=== PATIENT | female | born 1980 | race Caucasian/White ===

== ENCOUNTER 2016-03-24 06:37 | Emergency (ER) | payer BC ==
[2016-03-24 07:36] LABS: BASO % 0.4 % (0.0-1.0); EOS # 0.2 K/mm3 (0.0-0.50); EOS % 3.7 % (0.0-3.0); LARGE UNSTAINED CELL # 0.1 K/mm3 (0.0-0.4); LYMPH # 1.2 K/mm3 (1.5-4.5); LYMPH % 26.8 % (24.0-44.0); MEAN CORPUSCULAR HEMOGLOBIN 28.8 pg (27.0-33.0); MEAN CORPUSCULAR HGB CONC 32.6 g/dl (32.0-36.5); MEAN CORPUSCULAR VOLUME 88.2 fl (80.0-96.0); MONO # 0.4 K/mm3 (0.0-0.8); MONO % 9.7 % (0.0-5.0); NEUTROPHILS # 2.4 K/mm3 (1.8-7.7); NEUTROPHILS % 57.4 % (36.0-66.0); PLATELET COUNT, AUTOMATED 179 k/mm3 (150-450); RED CELL DISTRIBUTION WIDTH 12.6 % (11.5-14.5); WHITE BLOOD COUNT 4.2 K/mm3 (4.0-10.0)
[2016-03-24 07:44] LABS: CALCIUM OXALATE CRYSTALS SMALL
[2016-03-24 07:53] LABS: CONTROL LINE HCG INT CTR LINE PRESENT
[2016-03-24] MEDS ORDERED: KETOROLAC 30 MG/ML VIAL (J1885) As Ordered ONE (08:14)
--- NOTE | 2016-03-24 10:37 | REP ---
PELVIC SONOGRAPHY: HISTORY: Adnexal pain. Question torsion. Right oophorectomy. FINDINGS: Transabdominal and transvaginal scanning are included. Uterus is mildly enlarged with dimensions of 10.2 x 5.0 x 6.4 cm. Endometrial echo is 0.1 cm in thickness. No focal uterine mass is seen. The lower uterine segment shows heterogeneous echogenicity and small cystic changes. The patient is status post multiple prior C-sections. No free fluid is seen. Right ovary is surgically absent. The left ovary measures 3.8 x 2.4 x 3.3 cm. There is a dominant follicle in the right ovary measuring 2.1 cm in greatest diameter. Doppler resistive index is normal in the left ovary measuring 0.55. IMPRESSION: Myometrium is heterogeneous with small cystic areas in the myometrium of the lower uterine segment; post . No other abnormality. Normal left ovary. Signed by Kush Hughes MD 03/24/2016 11:03 A
--- NOTE | 2016-03-24 11:04 | EDDOCDS ---
Physician Documentation [facility] Name: Chata Chacko Age: 35 yrs Sex: Female : 1980 Arrival Date: 03/24/2016 Time: 06:37 Bed 12 Private MD: Disposition: 03/24/16 10:26 Discharged to Home/Self Care. Impression: Pelvic and perineal pain - bacterial vaginosis. - Condition is Stable. - Discharge Instructions: Bacterial Vaginosis, Pelvic Pain, Female, Pelvic Pain, Female, Txwl-[id number], Bacterial Vaginosis, Jwxy-fr-Ervd. - Prescriptions for Flagyl 500 mg Oral Tablet - take 1 tablet by ORAL route every 12 hours for 7 days; 14 tablet. - Medication Reconciliation, Local Pharmacy Hours, Work Release Form - 1 day form. - Follow up: Private Physician; When: Call to arrange an appointment. - Problem is new. - Symptoms have improved. Historical: - Allergies: PENICILLINS; Codeine Sulfate (tachycardia); - Home Meds: 1. mucinex flu - PMHx: kidney disease; - PSHx: Tubal ligation; multiple surgeries on kidney right side; Lithotripsy; - Social history: Smoking status: Patient uses tobacco products, light tobacco smoker. No barriers to communication noted, The patient speaks fluent Bulgarian, Speaks appropriately for age. - Family history: Not pertinent. - : The pt / caregiver states he / she is not on anticoagulants. Home medication list is obtained from the patient. - Exposure Risk Screening:: None identified. 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 4 in. (162.56 cm); 10:33 BP 105 / 56; Pulse 71; Resp 17; Temp 96.1(T); Pulse Ox 99% on R/A; lr2 11:03 Pain 0/10; jo3 06:51 Body Mass Index 26.43 (69.85 kg, 162.56 cm) cz MDM: 07:03 NS 0.9% 1000 ml IV at 250 mL/hr continuous ordered. sd1 07:03 Set up pelvic ordered. sd1 07:04 UA Ordered. EDMS 07:04 Urine Culture Ordered. EDMS 07:04 HCG,Serum Qualitative Ordered. EDMS 07:04 CBC with Diff Ordered. EDMS 07:04 GC & Chlamydia Amplification Ordered. EDMS 07:04 Wet Prep Ordered. EDMS 07:09 Financial registration complete. pm4 07:20 [facility] [place] Agreement was scanned into [employer] and attached to record. pm4 07:39 CBC with Diff Reviewed. sd1 07:50 UA Reviewed. sd1 08:05 HCG,Serum Qualitative Reviewed. sd1 08:06 ketorolac 30 mg IVP once ordered. sd1 08:41 -US Pelvic Non-Ob Complete Ordered. EDMS 08:42 DUPLEX SCAN LIMITED (DOPPLER)+US Ordered. EDMS 08:43 Wet Prep Reviewed. sd1 10:12 Transvaginal NON- US Ordered. EDMS Administered Medications: 07:30 Drug: NS 0.9% 1000 ml [sodium chloride 0.9 % intravenous solution] Route: IV; Rate: 250 ml6 mL/hr; Site: left antecubital; 11:03 Follow up: IV Status: Completed infusion jo3 08:18 Drug: ketorolac 30 mg [ketorolac 30 mg/mL (1 mL) injection solution (1 mL)] Route: IVP; ml6 Site: left antecubital; 11:03 Follow up: Pain 0/10 Adult jo3 Signatures: Dispatcher MedHost EDMS Sruthi Ozuna MD MD sd1 Gallo Jones RN RN Carol Rosenthal RN RN jo3 Refugio Romano, Reg Reg pm4 Denny Gallardo RN ml6 The chart was reviewed and I authenticate all verbal orders and agree with the evaluation and treatment provided.Attachments: 07:20 [facility] Payment Agreement pm4 MTDD
--- NOTE | 2016-03-24 11:04 | EDDOCDS ---
Nurse's Notes [facility] Name: Chata Chacko Age: 35 yrs Sex: Female : 1980 Arrival Date: 03/24/2016 Time: 06:37 Bed 12 Private MD: Diagnosis: Pelvic and perineal pain-bacterial vaginosis Presentation: 03/24 06:45 Presenting complaint: Patient states: she is having abdominal pain for 2 days starting cz spotting today recent period pt relates she has had a tubal ligation.pt denies UTI symptoms.pt states has a history of kidney disease. also having flu symptoms. Risk factors: the patient reports a small or scant amount of vaginal bleeding. Adult Sepsis Screening: The patient does not have new or worsening altered mentation. Patient's respiratory rate is less than 22. Systolic blood pressure is greater than 100. Patient has a qSOFA score of 0- Negative Sepsis Screen. Suicide/Homicide risk assessment- the patient denies having any suicidal and/or homicidal ideations and does not present with any other emotional, behavioral or mental health complaints. Status: Patient is not a account services specialist or dependent. Transition of care: patient was not received from another setting of care. 06:45 Acuity: GREG Level 3 cz 06:45 Method Of Arrival: Walkin/Carried/Asstd cz Triage Assessment: 06:51 General: Appears in no apparent distress. Pain: Location: abdomen Pain currently is 9 cz out of 10 on a pain scale. Pt Declines HIV testing. 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 mucinex flu - PMHx: kidney disease; - PSHx: Tubal ligation; multiple surgeries on kidney right side; Lithotripsy; - Social history: Smoking status: Patient uses tobacco products, light tobacco smoker. No barriers to communication noted, The patient speaks fluent Frisian, Speaks appropriately for age. - Family history: Not pertinent. - : The pt / caregiver states he / she is not on anticoagulants. Home medication list is obtained from the patient. - Exposure Risk Screening:: None identified. Screenin:31 Screening information is obtained from the patient. Fall risk: No risks identified. ml6 Assistance ADL's: requires no assistance with activities of daily living. Abuse/DV Screen: The patient / caregiver reports he/she is: not in a situation that causes fear, pain or injury. Nutritional screening: No deficits noted. Advance Directives: Currently, there is no health care proxy. home support is adequate. Assessment: 07:30 General: Appears in no apparent distress. Pain: Location: suprapubic area, right iliac ml6 crest and left iliac crest Pain currently is 5 out of 10 on a pain scale. Pain does not radiate. Quality of pain is described as sharp, Pain began 2-3 days ago. Neurological: No deficits noted. Cardiovascular: No deficits noted. Capillary refill < 3 seconds is brisk in bilateral fingers toes Heart tones S1 S2 present. Respiratory: No deficits noted. Airway is patent Respiratory effort is even, unlabored, Respiratory pattern is regular, symmetrical. GI: Abdomen is flat, non- distended Bowel sounds present X 4 quads. Abd is soft and non tender X 4 quads. Denies nausea, vomiting. 08:30 Reassessment: Patient appears in no apparent distress at this time. Patient denies pain ml6 at this time. Patient states feeling better. Patient states symptoms have improved. GI: Abdomen is flat, non- distended Bowel sounds present X 4 quads. Abd is soft and non tender X 4 quads. Denies nausea, vomiting, pain. 09:15 General: Appears in no apparent distress, comfortable, Behavior is appropriate for age, jo3 cooperative. General: Resting on stretcher with significant other at bedside. Awaiting results for disposition. Aware of plan of care. Pt reports that pain in improved but continues to feel weakness. Neurological: No deficits noted. Level of Consciousness is awake, alert, Oriented to person, place, time. Respiratory: Airway is patent Respiratory effort is even, unlabored. Derm: Skin is pink, warm & dry. 11:00 Reassessment: Patient appears in no apparent distress at this time. Patient denies pain jo3 at this time. Patient states feeling better. Patient states symptoms have improved. . Vital Signs: 06:51 BP 122 / 77; Pulse 74; Resp 16; Temp 96.3(T); Pulse Ox 100% on R/A; Weight 69.85 kg; cz Height 5 ft. 4 in. (162.56 cm); 10:33 BP 105 / 56; Pulse 71; Resp 17; Temp 96.1(T); Pulse Ox 99% on R/A; lr2 11:03 Pain 0/10; jo3 06:51 Body Mass Index 26.43 (69.85 kg, 162.56 cm) cz Vitals: 06:51 Log In Time: March 24, 2016 at 06:36. cz ED Course: 06:39 Patient visited by Leeann Peña. gjb 06:39 Patient moved to Waiting gjb 06:49 Triage Initiated cz 06:55 Patient moved to 12 cz 06:56 Sruthi Ozuna MD is Attending Physician. sd1 06:57 Patient visited by Sruthi Ozuna MD. sd1 07:18 Patient name changed from Chata\S\\S\Derryberry-Ant\S\ to Chata\S\ \S\Derryberry-Ant. EDMS 07:20 [facility] Payment Agreement was scanned into [employer] and attached to record. pm4 07:30 Urine Culture Sent. ml6 07:30 UA Sent. ml6 07:32 Patient visited by Denny Gallardo RN. ml6 07:32 Inserted peripheral IV: 18gauge IV in left antecubital area and blood collected. ml6 Patient tolerated the procedure well. No procedures done that require assistance. Labs drawn. (by ED staff). Sent per order to lab. 08:18 Patient visited by Denny Gallardo RN. ml6 08:30 Patient visited by Adryan Motta PCA. jlf 08:31 Wet Prep Sent. jlf 08:31 GC & Chlamydia Amplification Sent. jlf 09:08 Patient visited by Denny Gallardo RN. ml6 09:50 Patient moved to Ultrasound am17 09:51 Patient visited by Carol Alcazar RN. jo3 10:11 Patient moved to 12 am17 10:34 Patient visited by Maria Isabel Alvarado. lr2 10:38 -US Pelvic Non-Ob Complete Returned. EDMS 11:00 The patient / caregiver is instructed regarding the plan of care and ED course. jo3 11:00 Discontinued IV lock intact, bleeding controlled, pressure dressing applied, No jo3 redness/swelling at site. Administered Medications: 07:30 Drug: NS 0.9% 1000 ml [sodium chloride 0.9 % intravenous solution] Route: IV; Rate: 250 ml6 mL/hr; Site: left antecubital; 11:03 Follow up: IV Status: Completed infusion jo3 08:18 Drug: ketorolac 30 mg [ketorolac 30 mg/mL (1 mL) injection solution (1 mL)] Route: IVP; ml6 Site: left antecubital; 11:03 Follow up: Pain 0/10 Adult jo3 Order Results: Lab Order: UA; SPEC'M 03/24/16 07:17 Test: APPEARANCE, URINE; Value: CLOUDY; Range: CLEAR; Abnormal: Above high normal; Status: F Test: COLOR, URINE; Value: YELLOW; Range: YELLOW; Status: F Test: PH,URINE; Value: 5.0; Range: 5.0-9.0; Units: UNITS; Status: F Test: SPECIFIC GRAVITY URINE AUTO; Value: 1.018; Range: 1.002-1.035; Status: F Test: PROTEIN, URINE AUTO; Value: NEGATIVE; Range: NEGATIVE; Units: mg/dL; Status: F Test: GLUCOSE, URINE (UA) AUTO; Value: NEGATIVE; Range: NEGATIVE; Units: mg/dL; Status: F Test: KETONE, URINE AUTO; Value: NEGATIVE; Range: NEGATIVE; Units: mg/dL; Status: F Test: UROBILINOGEN, URINE AUTO; Value: 0.2; Range: 0.0-2.0; Units: mg/dL; Status: F Test: BILIRUBIN, URINE AUTO; Value: NEGATIVE; Range: NEGATIVE; Status: F Test: NITRITE, URINE AUTO; Value: NEGATIVE; Range: NEGATIVE; Status: F Test: LEUKOCYTE ESTERASE, URINE AUTO; Value: TRACE; Range: NEGATIVE; Abnormal: Above high normal; Status: F Test: BLOOD, URINE BLOOD; Value: NEGATIVE; Range: NEGATIVE; Status: F Test: WBC, URINE AUTO; Value: 11; Range: 0-3; Abnormal: Above high normal; Units: /HPF; Status: F Test: RBC, URINE AUTO; Value: 14; Range: 0-3; Abnormal: Above high normal; Units: /HPF; Status: F Test: BACTERIA, URINE AUTO; Value: NEGATIVE; Range: NEGATIVE; Status: F Test: SQUAMOUS EPITHELIAL CELL UR AU; Value: 10; Range: 0-6; Units: /HPF; Status: F Test: MUCUS, URINE; Value: SMALL; Range: NEGATIVE; Status: F Test: HYALINE CAST, URINE AUTO; Value: 0; Range: 0-1; Units: /LPF; Status: F Test: CALCIUM OXALATE CRYSTALS; Value: SMALL; Range: NONE; Status: F Lab Order: HCG,Serum Qualitative; SPEC'M 03/24/16 07:17 Test: HCG, SERUM QUALITATIVE; Value: NEGATIVE; Range: NEGATIVE; Status: F Lab Order: CBC with Diff; SPEC'M 03/24/16 07:17 Test: WHITE BLOOD COUNT; Value: 4.2; Range: 4.0-10.0; Units: K/mm3; Status: F Test: RED BLOOD COUNT; Value: 4.42; Range: 4.00-5.40; Units: M/mm3; Status: F Test: HEMOGLOBIN; Value: 12.7; Range: 12.0-16.0; Units: g/dl; Status: F Test: HEMATOCRIT; Value: 39.0; Range: 36.0-47.0; Units: %; Status: F Test: MEAN CORPUSCULAR VOLUME; Value: 88.2; Range: 80.0-96.0; Units: fl; Status: F Test: MEAN CORPUSCULAR HEMOGLOBIN; Value: 28.8; Range: 27.0-33.0; Units: pg; Status: F Test: MEAN CORPUSCULAR HGB CONC; Value: 32.6; Range: 32.0-36.5; Units: g/dl; Status: F Test: RED CELL DISTRIBUTION WIDTH; Value: 12.6; Range: 11.5-14.5; Units: %; Status: F Test: PLATELET COUNT, AUTOMATED; Value: 179; Range: 150-450; Units: k/mm3; Status: F Test: NEUTROPHILS %; Value: 57.4; Range: 36.0-66.0; Units: %; Status: F Test: LYMPH %; Value: 26.8; Range: 24.0-44.0; Units: %; Status: F Test: MONO %; Value: 9.7; Range: 0.0-5.0; Abnormal: Above high normal; Units: %; Status: F Test: EOS %; Value: 3.7; Range: 0.0-3.0; Abnormal: Above high normal; Units: %; Status: F Test: BASO %; Value: 0.4; Range: 0.0-1.0; Units: %; Status: F Test: LARGE UNSTAINED CELL %; Value: 2.0; Range: 0.0-4.0; Units: %; Status: F Test: NEUTROPHILS #; Value: 2.4; Range: 1.8-7.7; Units: K/mm3; Status: F Test: LYMPH #; Value: 1.2; Range: 1.5-4.5; Abnormal: Below low normal; Units: K/mm3; Status: F Test: MONO #; Value: 0.4; Range: 0.0-0.8; Units: K/mm3; Status: F Test: EOS #; Value: 0.2; Range: 0.0-0.50; Units: K/mm3; Status: F Test: BASO #; Value: 0.0; Range: 0.0-0.2; Units: K/mm3; Status: F Test: LARGE UNSTAINED CELL #; Value: 0.1; Range: 0.0-0.4; Units: K/mm3; Status: F Lab Order: GC & Chlamydia Amplification; SPEC'M 03/24/16 07:17 Test: CHLAMYDIA DNA AMPLIFICATION; Value: NEGATIVE; Range: NEGATIVE; Status: F Test: GC DNA AMPLIFICATION; Value: NEGATIVE; Range: NEGATIVE; Status: F Lab Order: Wet Prep; SPEC'M 03/24/16 07:17 Test: WET PREP; Value: WET PREP RESULT; Status: F Test: WET PREP; Value: MODERATE EPITHELIAL CELLS PRESENT; Status: F Test: WET PREP; Value: FEW WBC; Status: F Test: WET PREP; Value: MANY SHORT RODS PRESENT; Status: F Test: WET PREP; Value: FEW CLUE CELLS PRESENT; Status: F Test: WET PREP; Value: Comments:; Status: F Test Note: ; Specimen did not meet the 1 hour time limit from collection to examination. Trichomonas vaginalis loses motility quickly therefore, samples need to be examined within 1 hour of collection to optimally identify this organism. Radiology Order: -US Pelvic Non-Ob Complete Test: -US Pelvic Non-Ob Complete REASON FOR EXAMINATION: Adnexal Pain r/o Torsion; PELVIC SONOGRAPHY:; ; HISTORY: Adnexal pain. Question torsion. Right oophorectomy.; ; FINDINGS: Transabdominal and transvaginal scanning are included. Uterus is; mildly enlarged with dimensions of 10.2 x 5.0 x 6.4 cm. Endometrial echo is 0.1; cm in thickness. No focal uterine mass is seen. The lower uterine segment shows; heterogeneous echogenicity and small cystic changes. The patient is status post; multiple prior C-sections. No free fluid is seen.; ; Right ovary is surgically absent. The left ovary measures 3.8 x 2.4 x 3.3 cm.; There is a dominant follicle in the right ovary measuring 2.1 cm in greatest; diameter. Doppler resistive index is normal in the left ovary measuring 0.55.; ; IMPRESSION:; Myometrium is heterogeneous with small cystic areas in the myometrium of the; lower uterine segment; post . No other abnormality. Normal left; ovary.; ; ; ; ; Unreviewed; Outcome: 10:26 Discharge ordered by Provider. sd1 11:00 Discharge Assessment: Patient awake, alert and oriented x 3. No cognitive and/or jo3 functional deficits noted. Patient verbalized understanding of disposition instructions. patient administered narcotics - no. The following High Risk Discharge criteria are identified: None. Discharged to home ambulatory, with significant other. Condition: stable Condition: improved. No special radiology studies were completed. Property sent home with patient. 11:03 Patient left the ED. jo3 Signatures: Dispatcher MedHost EDMS Sruthi Ozuna MD MD sd1 Gallo Jones RN RN cz Helmerci, Jennifer, RN RN jo3 Denny Gallardo, BILL RN ml6 Adryan Motta, [employer] Neris Fox amLeeann Zurita gjb Refugio Romano, Reg Reg pm4 Maria Isabel Alvarado lr2 MTDD
--- NOTE | 2016-03-26 12:04 | EDDOCDS ---
Physician Documentation [facility] Name: Chata Chacko Age: 35 yrs Sex: Female : 1980 Arrival Date: 03/24/2016 Time: 06:37 Bed 12 Private MD: Disposition: 03/24/16 10:26 Discharged to Home/Self Care. Impression: Pelvic and perineal pain - bacterial vaginosis. - Condition is Stable. - Discharge Instructions: Bacterial Vaginosis, Pelvic Pain, Female, Pelvic Pain, Female, Jfpr-[id number], Bacterial Vaginosis, Mbba-yq-Xaxk. - Prescriptions for Flagyl 500 mg Oral Tablet - take 1 tablet by ORAL route every 12 hours for 7 days; 14 tablet. - Medication Reconciliation, Local Pharmacy Hours, Work Release Form - 1 day form. - Follow up: Private Physician; When: Call to arrange an appointment. - Problem is new. - Symptoms have improved. Historical: - Allergies: PENICILLINS; Codeine Sulfate (tachycardia); - Home Meds: 1. mucinex flu - PMHx: kidney disease; - PSHx: Tubal ligation; multiple surgeries on kidney right side; Lithotripsy; - Social history: Smoking status: Patient uses tobacco products, light tobacco smoker. No barriers to communication noted, The patient speaks fluent Macedonian, Speaks appropriately for age. - Family history: Not pertinent. - : The pt / caregiver states he / she is not on anticoagulants. Home medication list is obtained from the patient. - Exposure Risk Screening:: None identified. 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 4 in. (162.56 cm); 10:33 BP 105 / 56; Pulse 71; Resp 17; Temp 96.1(T); Pulse Ox 99% on R/A; lr2 11:03 Pain 0/10; jo3 06:51 Body Mass Index 26.43 (69.85 kg, 162.56 cm) cz MDM: 07:03 NS 0.9% 1000 ml IV at 250 mL/hr continuous ordered. sd1 07:03 Set up pelvic ordered. sd1 07:04 UA Ordered. EDMS 07:04 Urine Culture Ordered. EDMS 07:04 HCG,Serum Qualitative Ordered. EDMS 07:04 CBC with Diff Ordered. EDMS 07:04 GC & Chlamydia Amplification Ordered. EDMS 07:04 Wet Prep Ordered. EDMS 07:09 Financial registration complete. pm4 07:20 [facility] Payment Agreement was scanned into [employer] and attached to record. pm4 07:39 CBC with Diff Reviewed. sd1 07:50 UA Reviewed. sd1 08:05 HCG,Serum Qualitative Reviewed. sd1 08:06 ketorolac 30 mg IVP once ordered. sd1 08:41 -US Pelvic Non-Ob Complete Ordered. EDMS 08:42 DUPLEX SCAN LIMITED (DOPPLER)+US Ordered. EDMS 08:43 Wet Prep Reviewed. sd1 10:12 Transvaginal NON- US Ordered. EDMS 12:51 T-Sheet-- Draft Copy was scanned into [employer] and attached to record. klr Administered Medications: 07:30 Drug: NS 0.9% 1000 ml [sodium chloride 0.9 % intravenous solution] Route: IV; Rate: 250 ml6 mL/hr; Site: left antecubital; 11:03 Follow up: IV Status: Completed infusion jo3 08:18 Drug: ketorolac 30 mg [ketorolac 30 mg/mL (1 mL) injection solution (1 mL)] Route: IVP; ml6 Site: left antecubital; 11:03 Follow up: Pain 0/10 Adult jo3 Signatures: Dispatcher MedHost EDNC Sruthi Ozuna MD MD sd1 Gallo Jones RN RN cz Carol Alcazar RN RN jo3 Ivonne Garcia klr Refugio Romano, Reg Reg pm4 Denny Gallardo RN ml6 The chart was reviewed and I authenticate all verbal orders and agree with the evaluation and treatment provided.Attachments: 07:20 [facility] Payment Agreement pm4 12:51 T-Sheet-- Draft Copy klr Chart Complete MTDD
--- NOTE | 2016-03-26 12:04 | EDDOCDS ---
Physician Documentation [facility] Name: Chata Chacko Age: 35 yrs Sex: Female : 1980 Arrival Date: 03/24/2016 Time: 06:37 Bed 12 Private MD: Disposition: 03/24/16 10:26 Discharged to Home/Self Care. Impression: Pelvic and perineal pain - bacterial vaginosis. - Condition is Stable. - Discharge Instructions: Bacterial Vaginosis, Pelvic Pain, Female, Pelvic Pain, Female, Oerc-yq-Exov, Bacterial Vaginosis, Rpzg-ye-Qqfu. - Prescriptions for Flagyl 500 mg Oral Tablet - take 1 tablet by ORAL route every 12 hours for 7 days; 14 tablet. - Medication Reconciliation, Local Pharmacy Hours, Work Release Form - 1 day form. - Follow up: Private Physician; When: Call to arrange an appointment. - Problem is new. - Symptoms have improved. Historical: - Allergies: PENICILLINS; Codeine Sulfate (tachycardia); - Home Meds: 1. mucinex flu - PMHx: kidney disease; - PSHx: Tubal ligation; multiple surgeries on kidney right side; Lithotripsy; - Social history: Smoking status: Patient uses tobacco products, light tobacco smoker. No barriers to communication noted, The patient speaks fluent British, Speaks appropriately for age. - Family history: Not pertinent. - : The pt / caregiver states he / she is not on anticoagulants. Home medication list is obtained from the patient. - Exposure Risk Screening:: None identified. 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 4 in. (162.56 cm); 10:33 BP 105 / 56; Pulse 71; Resp 17; Temp 96.1(T); Pulse Ox 99% on R/A; lr2 11:03 Pain 0/10; jo3 06:51 Body Mass Index 26.43 (69.85 kg, 162.56 cm) cz MDM: 07:03 NS 0.9% 1000 ml IV at 250 mL/hr continuous ordered. sd1 07:03 Set up pelvic ordered. sd1 07:04 UA Ordered. EDMS 07:04 Urine Culture Ordered. EDMS 07:04 HCG,Serum Qualitative Ordered. EDMS 07:04 CBC with Diff Ordered. EDMS 07:04 GC & Chlamydia Amplification Ordered. EDMS 07:04 Wet Prep Ordered. EDMS 07:09 Financial registration complete. pm4 07:20 [facility] Payment Agreement was scanned into [employer] and attached to record. pm4 07:39 CBC with Diff Reviewed. sd1 07:50 UA Reviewed. sd1 08:05 HCG,Serum Qualitative Reviewed. sd1 08:06 ketorolac 30 mg IVP once ordered. sd1 08:41 -US Pelvic Non-Ob Complete Ordered. EDMS 08:42 DUPLEX SCAN LIMITED (DOPPLER)+US Ordered. EDMS 08:43 Wet Prep Reviewed. sd1 10:12 Transvaginal NON- US Ordered. EDMS 12:51 T-Sheet-- Draft Copy was scanned into [employer] and attached to record. klr Administered Medications: 07:30 Drug: NS 0.9% 1000 ml [sodium chloride 0.9 % intravenous solution] Route: IV; Rate: 250 ml6 mL/hr; Site: left antecubital; 11:03 Follow up: IV Status: Completed infusion jo3 08:18 Drug: ketorolac 30 mg [ketorolac 30 mg/mL (1 mL) injection solution (1 mL)] Route: IVP; ml6 Site: left antecubital; 11:03 Follow up: Pain 0/10 Adult jo3 Signatures: Dispatcher MedHost EDCT Sruthi Ozuna MD MD sd1 Gallo Jones RN RN cz Carol Alcazar RN RN jo3 Ivonne Garcia klr Refugio Romano, Reg Reg pm4 Denny Gallardo RN ml6 The chart was reviewed and I authenticate all verbal orders and agree with the evaluation and treatment provided.Attachments: 07:20 [facility] Payment Agreement pm4 12:51 T-Sheet-- Draft Copy klr Chart Complete MTDD
--- NOTE | 2016-03-26 17:42 | EDDOCDS ---
Physician Documentation [facility] Name: Chata Chacko Age: 35 yrs Sex: Female : 1980 Arrival Date: 03/24/2016 Time: 06:37 Bed 12 Private MD: Disposition: 03/24/16 10:26 Discharged to Home/Self Care. Impression: Pelvic and perineal pain - bacterial vaginosis. - Condition is Stable. - Discharge Instructions: Bacterial Vaginosis, Pelvic Pain, Female, Pelvic Pain, Female, Shpl-[id number], Bacterial Vaginosis, Xhhj-lb-[id number]. - Prescriptions for Flagyl 500 mg Oral Tablet - take 1 tablet by ORAL route every 12 hours for 7 days; 14 tablet. - Medication Reconciliation, Local Pharmacy Hours, Work Release Form - 1 day form. - Follow up: Private Physician; When: Call to arrange an appointment. - Problem is new. - Symptoms have improved. Historical: - Allergies: PENICILLINS; Codeine Sulfate (tachycardia); - Home Meds: 1. mucinex flu - PMHx: kidney disease; - PSHx: Tubal ligation; multiple surgeries on kidney right side; Lithotripsy; - Social history: Smoking status: Patient uses tobacco products, light tobacco smoker. No barriers to communication noted, The patient speaks fluent Swazi, Speaks appropriately for age. - Family history: Not pertinent. - : The pt / caregiver states he / she is not on anticoagulants. Home medication list is obtained from the patient. - Exposure Risk Screening:: None identified. DIRECTOR OF RECRUITMENT AND ADMISSIONS: 03/24 06:51 LMP 03/13/2016 cz Vital Signs: 06:51 BP 122 / 77; Pulse 74; Resp 16; Temp 96.3(T); Pulse Ox 100% on R/A; Weight 69.85 kg / cz 153.99 lbs; Height 5 ft. 4 in. (162.56 cm); 10:33 BP 105 / 56; Pulse 71; Resp 17; Temp 96.1(T); Pulse Ox 99% on R/A; lr2 11:03 Pain 0/10; jo3 06:51 Body Mass Index 26.43 (69.85 kg, 162.56 cm) cz MDM: 07:03 NS 0.9% 1000 ml IV at 250 mL/hr continuous ordered. sd1 07:03 Set up pelvic ordered. sd1 07:04 UA Ordered. EDMS 07:04 Urine Culture Ordered. EDMS 07:04 HCG,Serum Qualitative Ordered. EDMS 07:04 CBC with Diff Ordered. EDMS 07:04 GC & Chlamydia Amplification Ordered. EDMS 07:04 Wet Prep Ordered. EDMS 07:09 Financial registration complete. pm4 07:20 [facility] Payment Agreement was scanned into [employer] and attached to record. pm4 07:39 CBC with Diff Reviewed. sd1 07:50 UA Reviewed. sd1 08:05 HCG,Serum Qualitative Reviewed. sd1 08:06 ketorolac 30 mg IVP once ordered. sd1 08:41 -US Pelvic Non-Ob Complete Ordered. EDMS 08:42 DUPLEX SCAN LIMITED (DOPPLER)+US Ordered. EDMS 08:43 Wet Prep Reviewed. sd1 10:12 Transvaginal NON- US Ordered. EDMS 12:51 T-Sheet-- Draft Copy was scanned into [employer] and attached to record. klr Administered Medications: 07:30 Drug: NS 0.9% 1000 ml [sodium chloride 0.9 % intravenous solution] Route: IV; Rate: 250 ml6 mL/hr; Site: left antecubital; 11:03 Follow up: IV Status: Completed infusion jo3 08:18 Drug: ketorolac 30 mg [ketorolac 30 mg/mL (1 mL) injection solution (1 mL)] Route: IVP; ml6 Site: left antecubital; 11:03 Follow up: Pain 0/10 Adult jo3 Addendum: 03/26/2016 17:41 Radiology Callback: A certified letter will be sent to the patient / guardian. to pt re ml formal read of pelvic us for fu . no pcp or cosmetic consultant documented. needs fu. see report. mlg. Signatures: Dispatcher [employer] EDMS Sruthi Ozuna MD MD sd1 Vladimir Dior MD MD ml Zecher, Calvin, RN RN cz Helmerci, Jennifer, RN RN jo3 Ivonne Garcia Paul, Reg Reg pm4 Denny Gallardo RN ml6 The chart was reviewed and I authenticate all verbal orders and agree with the evaluation and treatment provided.Attachments: 02/05 07:20 [facility] Payment Agreement pm4 12:51 T-Sheet-- Draft Copy klr MTDD
--- NOTE | 2016-03-26 17:42 | EDDOCDS ---
Physician Documentation [facility] Name: Chata Chacko Age: 35 yrs Sex: Female : 1980 Arrival Date: 03/24/2016 Time: 06:37 Bed 12 Private MD: Disposition: 03/24/16 10:26 Discharged to Home/Self Care. Impression: Pelvic and perineal pain - bacterial vaginosis. - Condition is Stable. - Discharge Instructions: Bacterial Vaginosis, Pelvic Pain, Female, Pelvic Pain, Female, Ypve-[id number], Bacterial Vaginosis, Cegf-ga-Yvfa. - Prescriptions for Flagyl 500 mg Oral Tablet - take 1 tablet by ORAL route every 12 hours for 7 days; 14 tablet. - Medication Reconciliation, Local Pharmacy Hours, Work Release Form - 1 day form. - Follow up: Private Physician; When: Call to arrange an appointment. - Problem is new. - Symptoms have improved. Historical: - Allergies: PENICILLINS; Codeine Sulfate (tachycardia); - Home Meds: 1. mucinex flu - PMHx: kidney disease; - PSHx: Tubal ligation; multiple surgeries on kidney right side; Lithotripsy; - Social history: Smoking status: Patient uses tobacco products, light tobacco smoker. No barriers to communication noted, The patient speaks fluent [place], Speaks appropriately for age. - Family history: Not pertinent. - : The pt / caregiver states he / she is not on anticoagulants. Home medication list is obtained from the patient. - Exposure Risk Screening:: None identified. 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 4 in. (162.56 cm); 10:33 BP 105 / 56; Pulse 71; Resp 17; Temp 96.1(T); Pulse Ox 99% on R/A; lr2 11:03 Pain 0/10; jo3 06:51 Body Mass Index 26.43 (69.85 kg, 162.56 cm) cz MDM: 07:03 NS 0.9% 1000 ml IV at 250 mL/hr continuous ordered. sd1 07:03 Set up pelvic ordered. sd1 07:04 UA Ordered. EDMS 07:04 Urine Culture Ordered. EDMS 07:04 HCG,Serum Qualitative Ordered. EDMS 07:04 CBC with Diff Ordered. EDMS 07:04 GC & Chlamydia Amplification Ordered. EDMS 07:04 Wet Prep Ordered. EDMS 07:09 Financial registration complete. pm4 07:20 [facility] Payment Agreement was scanned into [employer] and attached to record. pm4 07:39 CBC with Diff Reviewed. sd1 07:50 UA Reviewed. sd1 08:05 HCG,Serum Qualitative Reviewed. sd1 08:06 ketorolac 30 mg IVP once ordered. sd1 08:41 -US Pelvic Non-Ob Complete Ordered. EDMS 08:42 DUPLEX SCAN LIMITED (DOPPLER)+US Ordered. EDMS 08:43 Wet Prep Reviewed. sd1 10:12 Transvaginal NON- US Ordered. EDMS 12:51 T-Sheet-- Draft Copy was scanned into [employer] and attached to record. klr Administered Medications: 07:30 Drug: NS 0.9% 1000 ml [sodium chloride 0.9 % intravenous solution] Route: IV; Rate: 250 ml6 mL/hr; Site: left antecubital; 11:03 Follow up: IV Status: Completed infusion jo3 08:18 Drug: ketorolac 30 mg [ketorolac 30 mg/mL (1 mL) injection solution (1 mL)] Route: IVP; ml6 Site: left antecubital; 11:03 Follow up: Pain 0/10 Adult jo3 Addendum: 03/26/2016 17:41 Radiology Callback: A certified letter will be sent to the patient / guardian. to pt re ml formal read of pelvic us for fu . no pcp or independent producer documented. needs fu. see report. mlg. Signatures: Dispatcher [employer] EDMS Sruthi Ozuna MD MD sd1 Vladimir Dior MD MD ml Zecher, Calvin, RN RN cz Helmerci, Jennifer, RN RN jo3 Ivonne Garcia Paul, Reg Reg pm4 Denny Gallardo RN ml6 The chart was reviewed and I authenticate all verbal orders and agree with the evaluation and treatment provided.Attachments: 02/05 07:20 [facility] Payment Agreement pm4 12:51 T-Sheet-- Draft Copy klr MTDD
--- NOTE | 2016-03-26 17:44 | EDDOCDS ---
Nurse's Notes [facility] Name: Chata Chacko Age: 35 yrs Sex: Female : 1980 Arrival Date: 03/24/2016 Time: 06:37 Bed 12 Private MD: Diagnosis: Pelvic and perineal pain-bacterial vaginosis Presentation: 03/24 06:45 Presenting complaint: Patient states: she is having abdominal pain for 2 days starting cz spotting today recent period pt relates she has had a tubal ligation.pt denies UTI symptoms.pt states has a history of kidney disease. also having flu symptoms. Risk factors: the patient reports a small or scant amount of vaginal bleeding. Adult Sepsis Screening: The patient does not have new or worsening altered mentation. Patient's respiratory rate is less than 22. Systolic blood pressure is greater than 100. Patient has a qSOFA score of 0- Negative Sepsis Screen. Suicide/Homicide risk assessment- the patient denies having any suicidal and/or homicidal ideations and does not present with any other emotional, behavioral or mental health complaints. Status: Patient is not a industrial service technician or dependent. Transition of care: patient was not received from another setting of care. 06:45 Acuity: GREG Level 3 cz 06:45 Method Of Arrival: Walkin/Carried/Asstd cz Triage Assessment: 06:51 General: Appears in no apparent distress. Pain: Location: abdomen Pain currently is 9 cz out of 10 on a pain scale. Pt Declines HIV testing. 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 mucinex flu - PMHx: kidney disease; - PSHx: Tubal ligation; multiple surgeries on kidney right side; Lithotripsy; - Social history: Smoking status: Patient uses tobacco products, light tobacco smoker. No barriers to communication noted, The patient speaks fluent Japanese, Speaks appropriately for age. - Family history: Not pertinent. - : The pt / caregiver states he / she is not on anticoagulants. Home medication list is obtained from the patient. - Exposure Risk Screening:: None identified. Screenin:31 Screening information is obtained from the patient. Fall risk: No risks identified. ml6 Assistance ADL's: requires no assistance with activities of daily living. Abuse/DV Screen: The patient / caregiver reports he/she is: not in a situation that causes fear, pain or injury. Nutritional screening: No deficits noted. Advance Directives: Currently, there is no health care proxy. home support is adequate. Assessment: 07:30 General: Appears in no apparent distress. Pain: Location: suprapubic area, right iliac ml6 crest and left iliac crest Pain currently is 5 out of 10 on a pain scale. Pain does not radiate. Quality of pain is described as sharp, Pain began 2-3 days ago. Neurological: No deficits noted. Cardiovascular: No deficits noted. Capillary refill < 3 seconds is brisk in bilateral fingers toes Heart tones S1 S2 present. Respiratory: No deficits noted. Airway is patent Respiratory effort is even, unlabored, Respiratory pattern is regular, symmetrical. GI: Abdomen is flat, non- distended Bowel sounds present X 4 quads. Abd is soft and non tender X 4 quads. Denies nausea, vomiting. 08:30 Reassessment: Patient appears in no apparent distress at this time. Patient denies pain ml6 at this time. Patient states feeling better. Patient states symptoms have improved. GI: Abdomen is flat, non- distended Bowel sounds present X 4 quads. Abd is soft and non tender X 4 quads. Denies nausea, vomiting, pain. 09:15 General: Appears in no apparent distress, comfortable, Behavior is appropriate for age, jo3 cooperative. General: Resting on stretcher with significant other at bedside. Awaiting results for disposition. Aware of plan of care. Pt reports that pain in improved but continues to feel weakness. Neurological: No deficits noted. Level of Consciousness is awake, alert, Oriented to person, place, time. Respiratory: Airway is patent Respiratory effort is even, unlabored. Derm: Skin is pink, warm & dry. 11:00 Reassessment: Patient appears in no apparent distress at this time. Patient denies pain jo3 at this time. Patient states feeling better. Patient states symptoms have improved. . Vital Signs: 06:51 BP 122 / 77; Pulse 74; Resp 16; Temp 96.3(T); Pulse Ox 100% on R/A; Weight 69.85 kg; cz Height 5 ft. 4 in. (162.56 cm); 10:33 BP 105 / 56; Pulse 71; Resp 17; Temp 96.1(T); Pulse Ox 99% on R/A; lr2 11:03 Pain 0/10; jo3 06:51 Body Mass Index 26.43 (69.85 kg, 162.56 cm) cz Vitals: 06:51 Log In Time: March 24, 2016 at 06:36. cz ED Course: 06:39 Patient visited by Leeann Peña. gjb 06:39 Patient moved to Waiting gjb 06:49 Triage Initiated cz 06:55 Patient moved to 12 cz 06:56 Sruthi Ozuna MD is Attending Physician. sd1 06:57 Patient visited by Sruthi Ozuna MD. sd1 07:18 Patient name changed from Chata\S\\S\Derryberry-Ant\S\ to Chata\S\ \S\Derryberry-Ant. EDMS 07:20 [facility] Payment Agreement was scanned into [employer] and attached to record. pm4 07:30 Urine Culture Sent. ml6 07:30 UA Sent. ml6 07:32 Patient visited by Denny Gallardo RN. ml6 07:32 Inserted peripheral IV: 18gauge IV in left antecubital area and blood collected. ml6 Patient tolerated the procedure well. No procedures done that require assistance. Labs drawn. (by ED staff). Sent per order to lab. 08:18 Patient visited by Denny Gallardo RN. ml6 08:30 Patient visited by Adryan Motta PCA. jlf 08:31 Wet Prep Sent. jlf 08:31 GC & Chlamydia Amplification Sent. jlf 09:08 Patient visited by Denny Gallardo RN. ml6 09:50 Patient moved to Ultrasound am17 09:51 Patient visited by Carol Alcazar RN. jo3 10:11 Patient moved to 12 am17 10:34 Patient visited by Maria Isabel Alvarado. lr2 10:38 -US Pelvic Non-Ob Complete Returned. EDMS 11:00 The patient / caregiver is instructed regarding the plan of care and ED course. jo3 11:00 Discontinued IV lock intact, bleeding controlled, pressure dressing applied, No jo3 redness/swelling at site. 12:51 T-Sheet-- Draft Copy was scanned into [employer] and attached to record. klr Administered Medications: 07:30 Drug: NS 0.9% 1000 ml [sodium chloride 0.9 % intravenous solution] Route: IV; Rate: 250 ml6 mL/hr; Site: left antecubital; 11:03 Follow up: IV Status: Completed infusion jo3 08:18 Drug: ketorolac 30 mg [ketorolac 30 mg/mL (1 mL) injection solution (1 mL)] Route: IVP; ml6 Site: left antecubital; 11:03 Follow up: Pain 0/10 Adult jo3 Order Results: Lab Order: UA; SPEC'M 03/24/16 07:17 Test: APPEARANCE, URINE; Value: CLOUDY; Range: CLEAR; Abnormal: Above high normal; Status: F Test: COLOR, URINE; Value: YELLOW; Range: YELLOW; Status: F Test: PH,URINE; Value: 5.0; Range: 5.0-9.0; Units: UNITS; Status: F Test: SPECIFIC GRAVITY URINE AUTO; Value: 1.018; Range: 1.002-1.035; Status: F Test: PROTEIN, URINE AUTO; Value: NEGATIVE; Range: NEGATIVE; Units: mg/dL; Status: F Test: GLUCOSE, URINE (UA) AUTO; Value: NEGATIVE; Range: NEGATIVE; Units: mg/dL; Status: F Test: KETONE, URINE AUTO; Value: NEGATIVE; Range: NEGATIVE; Units: mg/dL; Status: F Test: UROBILINOGEN, URINE AUTO; Value: 0.2; Range: 0.0-2.0; Units: mg/dL; Status: F Test: BILIRUBIN, URINE AUTO; Value: NEGATIVE; Range: NEGATIVE; Status: F Test: NITRITE, URINE AUTO; Value: NEGATIVE; Range: NEGATIVE; Status: F Test: LEUKOCYTE ESTERASE, URINE AUTO; Value: TRACE; Range: NEGATIVE; Abnormal: Above high normal; Status: F Test: BLOOD, URINE BLOOD; Value: NEGATIVE; Range: NEGATIVE; Status: F Test: WBC, URINE AUTO; Value: 11; Range: 0-3; Abnormal: Above high normal; Units: /HPF; Status: F Test: RBC, URINE AUTO; Value: 14; Range: 0-3; Abnormal: Above high normal; Units: /HPF; Status: F Test: BACTERIA, URINE AUTO; Value: NEGATIVE; Range: NEGATIVE; Status: F Test: SQUAMOUS EPITHELIAL CELL UR AU; Value: 10; Range: 0-6; Units: /HPF; Status: F Test: MUCUS, URINE; Value: SMALL; Range: NEGATIVE; Status: F Test: HYALINE CAST, URINE AUTO; Value: 0; Range: 0-1; Units: /LPF; Status: F Test: CALCIUM OXALATE CRYSTALS; Value: SMALL; Range: NONE; Status: F Lab Order: Urine Culture; SPEC'M 03/24/16 07:17 Test: URINE CULTURE; Value: <EXTERNAL COMMENT eCWMed> FULL REPORT IN LAB NOTES (eCW and Medent).; Status: F Test: URINE CULTURE; Value: URINE CULTURE RESULT SPECIMEN APPEARS CONTAMINATED; Status: F Lab Order: HCG,Serum Qualitative; SPEC'M 03/24/16 07:17 Test: HCG, SERUM QUALITATIVE; Value: NEGATIVE; Range: NEGATIVE; Status: F Lab Order: CBC with Diff; SPEC'M 03/24/16 07:17 Test: WHITE BLOOD COUNT; Value: 4.2; Range: 4.0-10.0; Units: K/mm3; Status: F Test: RED BLOOD COUNT; Value: 4.42; Range: 4.00-5.40; Units: M/mm3; Status: F Test: HEMOGLOBIN; Value: 12.7; Range: 12.0-16.0; Units: g/dl; Status: F Test: HEMATOCRIT; Value: 39.0; Range: 36.0-47.0; Units: %; Status: F Test: MEAN CORPUSCULAR VOLUME; Value: 88.2; Range: 80.0-96.0; Units: fl; Status: F Test: MEAN CORPUSCULAR HEMOGLOBIN; Value: 28.8; Range: 27.0-33.0; Units: pg; Status: F Test: MEAN CORPUSCULAR HGB CONC; Value: 32.6; Range: 32.0-36.5; Units: g/dl; Status: F Test: RED CELL DISTRIBUTION WIDTH; Value: 12.6; Range: 11.5-14.5; Units: %; Status: F Test: PLATELET COUNT, AUTOMATED; Value: 179; Range: 150-450; Units: k/mm3; Status: F Test: NEUTROPHILS %; Value: 57.4; Range: 36.0-66.0; Units: %; Status: F Test: LYMPH %; Value: 26.8; Range: 24.0-44.0; Units: %; Status: F Test: MONO %; Value: 9.7; Range: 0.0-5.0; Abnormal: Above high normal; Units: %; Status: F Test: EOS %; Value: 3.7; Range: 0.0-3.0; Abnormal: Above high normal; Units: %; Status: F Test: BASO %; Value: 0.4; Range: 0.0-1.0; Units: %; Status: F Test: LARGE UNSTAINED CELL %; Value: 2.0; Range: 0.0-4.0; Units: %; Status: F Test: NEUTROPHILS #; Value: 2.4; Range: 1.8-7.7; Units: K/mm3; Status: F Test: LYMPH #; Value: 1.2; Range: 1.5-4.5; Abnormal: Below low normal; Units: K/mm3; Status: F Test: MONO #; Value: 0.4; Range: 0.0-0.8; Units: K/mm3; Status: F Test: EOS #; Value: 0.2; Range: 0.0-0.50; Units: K/mm3; Status: F Test: BASO #; Value: 0.0; Range: 0.0-0.2; Units: K/mm3; Status: F Test: LARGE UNSTAINED CELL #; Value: 0.1; Range: 0.0-0.4; Units: K/mm3; Status: F Lab Order: GC & Chlamydia Amplification; SPEC'M 03/24/16 07:17 Test: CHLAMYDIA DNA AMPLIFICATION; Value: NEGATIVE; Range: NEGATIVE; Status: F Test: GC DNA AMPLIFICATION; Value: NEGATIVE; Range: NEGATIVE; Status: F Lab Order: Wet Prep; SPEC'M 03/24/16 07:17 Test: WET PREP; Value: WET PREP RESULT; Status: F Test: WET PREP; Value: MODERATE EPITHELIAL CELLS PRESENT; Status: F Test: WET PREP; Value: FEW WBC; Status: F Test: WET PREP; Value: MANY SHORT RODS PRESENT; Status: F Test: WET PREP; Value: FEW CLUE CELLS PRESENT; Status: F Test: WET PREP; Value: Comments:; Status: F Test Note: ; Specimen did not meet the 1 hour time limit from collection to examination. Trichomonas vaginalis loses motility quickly therefore, samples need to be examined within 1 hour of collection to optimally identify this organism. Radiology Order: -US Pelvic Non-Ob Complete Test: -US Pelvic Non-Ob Complete REASON FOR EXAMINATION: Adnexal Pain r/o Torsion; PELVIC SONOGRAPHY:; ; HISTORY: Adnexal pain. Question torsion. Right oophorectomy.; ; FINDINGS: Transabdominal and transvaginal scanning are included. Uterus is; mildly enlarged with dimensions of 10.2 x 5.0 x 6.4 cm. Endometrial echo is 0.1; cm in thickness. No focal uterine mass is seen. The lower uterine segment shows; heterogeneous echogenicity and small cystic changes. The patient is status post; multiple prior C-sections. No free fluid is seen.; ; Right ovary is surgically absent. The left ovary measures 3.8 x 2.4 x 3.3 cm.; There is a dominant follicle in the right ovary measuring 2.1 cm in greatest; diameter. Doppler resistive index is normal in the left ovary measuring 0.55.; ; IMPRESSION:; ; Myometrium is heterogeneous with small cystic areas in the myometrium of the; lower uterine segment; post . No other abnormality. Normal left; ovary.; ; ; Signed by; Kush Hughes MD 03/24/2016 11:03 A; Outcome: 10:26 Discharge ordered by Provider. sd1 11:00 Discharge Assessment: Patient awake, alert and oriented x 3. No cognitive and/or jo3 functional deficits noted. Patient verbalized understanding of disposition instructions. patient administered narcotics - no. The following High Risk Discharge criteria are identified: None. Discharged to home ambulatory, with significant other. Condition: stable Condition: improved. No special radiology studies were completed. Property sent home with patient. 11:03 Patient left the ED. jo3 Signatures: Dispatcher [employer] EDMS Sruthi Ozuna MD MD sd1 Gallo Jones RN RN cz Helmerci, Jennifer, RN RN jo3 Denny Gallardo RN RN ml6 Adryan Motta, ASSOCIATE STORE DIRECTOR ASSOCIATE STORE DIRECTOR Neris Fox Gabriela gjb Redder, Kathie klr [facility] [place], Reg Reg pm4 Maria Isabel Alvarado lr2 Chart Complete MTDD
--- NOTE | 2016-03-26 17:44 | EDDOCDS ---
Physician Documentation [facility] Name: Chata Chacko Age: 35 yrs Sex: Female : 1980 Arrival Date: 03/24/2016 Time: 06:37 Bed 12 Private MD: Disposition: 03/24/16 10:26 Discharged to Home/Self Care. Impression: Pelvic and perineal pain - bacterial vaginosis. - Condition is Stable. - Discharge Instructions: Bacterial Vaginosis, Pelvic Pain, Female, Pelvic Pain, Female, [id number], Bacterial Vaginosis, [id number]. - Prescriptions for Flagyl 500 mg Oral Tablet - take 1 tablet by ORAL route every 12 hours for 7 days; 14 tablet. - Medication Reconciliation, Local Pharmacy Hours, Work Release Form - 1 day form. - Follow up: Private Physician; When: Call to arrange an appointment. - Problem is new. - Symptoms have improved. Historical: - Allergies: PENICILLINS; Codeine Sulfate (tachycardia); - Home Meds: 1. mucinex flu - PMHx: kidney disease; - PSHx: Tubal ligation; multiple surgeries on kidney right side; Lithotripsy; - Social history: Smoking status: Patient uses tobacco products, light tobacco smoker. No barriers to communication noted, The patient speaks fluent Dutch, Speaks appropriately for age. - Family history: Not pertinent. - : The pt / caregiver states he / she is not on anticoagulants. Home medication list is obtained from the patient. - Exposure Risk Screening:: None identified. 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 4 in. (162.56 cm); 10:33 BP 105 / 56; Pulse 71; Resp 17; Temp 96.1(T); Pulse Ox 99% on R/A; lr2 11:03 Pain 0/10; jo3 06:51 Body Mass Index 26.43 (69.85 kg, 162.56 cm) cz MDM: 07:03 NS 0.9% 1000 ml IV at 250 mL/hr continuous ordered. sd1 07:03 Set up pelvic ordered. sd1 07:04 UA Ordered. EDMS 07:04 Urine Culture Ordered. EDMS 07:04 HCG,Serum Qualitative Ordered. EDMS 07:04 CBC with Diff Ordered. EDMS 07:04 GC & Chlamydia Amplification Ordered. EDMS 07:04 Wet Prep Ordered. EDMS 07:09 Financial registration complete. pm4 07:20 [facility] Payment Agreement was scanned into [employer] and attached to record. pm4 07:39 CBC with Diff Reviewed. sd1 07:50 UA Reviewed. sd1 08:05 HCG,Serum Qualitative Reviewed. sd1 08:06 ketorolac 30 mg IVP once ordered. sd1 08:41 -US Pelvic Non-Ob Complete Ordered. EDMS 08:42 DUPLEX SCAN LIMITED (DOPPLER)+US Ordered. EDMS 08:43 Wet Prep Reviewed. sd1 10:12 Transvaginal NON- US Ordered. EDMS 12:51 T-Sheet-- Draft Copy was scanned into [employer] and attached to record. klr Administered Medications: 07:30 Drug: NS 0.9% 1000 ml [sodium chloride 0.9 % intravenous solution] Route: IV; Rate: 250 ml6 mL/hr; Site: left antecubital; 11:03 Follow up: IV Status: Completed infusion jo3 08:18 Drug: ketorolac 30 mg [ketorolac 30 mg/mL (1 mL) injection solution (1 mL)] Route: IVP; ml6 Site: left antecubital; 11:03 Follow up: Pain 0/10 Adult jo3 Addendum: 03/26/2016 17:41 Radiology Callback: A certified letter will be sent to the patient / guardian. to pt re ml formal read of pelvic us for fu . no pcp or kettle cook documented. needs fu. see report. mlg. Signatures: Dispatcher [employer] EDMS Sruthi Ozuna MD MD sd1 Vladimir Dior MD MD ml Zecher, Calvin, RN RN cz Helmerci, Jennifer, RN RN jo3 Ivonne Garcia Paul, Reg Reg pm4 Denny Gallardo RN ml6 The chart was reviewed and I authenticate all verbal orders and agree with the evaluation and treatment provided.Attachments: 02/05 07:20 [facility] Payment Agreement pm4 12:51 T-Sheet-- Draft Copy klr Chart Complete MTDD
--- NOTE | 2016-03-26 17:44 | EDDOCDS ---
Physician Documentation [facility] Name: Chata Chacko Age: 35 yrs Sex: Female : 1980 Arrival Date: 03/24/2016 Time: 06:37 Bed 12 Private MD: Disposition: 03/24/16 10:26 Discharged to Home/Self Care. Impression: Pelvic and perineal pain - bacterial vaginosis. - Condition is Stable. - Discharge Instructions: Bacterial Vaginosis, Pelvic Pain, Female, Pelvic Pain, Female, [id number], Bacterial Vaginosis, [id number]. - Prescriptions for Flagyl 500 mg Oral Tablet - take 1 tablet by ORAL route every 12 hours for 7 days; 14 tablet. - Medication Reconciliation, Local Pharmacy Hours, Work Release Form - 1 day form. - Follow up: Private Physician; When: Call to arrange an appointment. - Problem is new. - Symptoms have improved. Historical: - Allergies: PENICILLINS; Codeine Sulfate (tachycardia); - Home Meds: 1. mucinex flu - PMHx: kidney disease; - PSHx: Tubal ligation; multiple surgeries on kidney right side; Lithotripsy; - Social history: Smoking status: Patient uses tobacco products, light tobacco smoker. No barriers to communication noted, The patient speaks fluent Irish, Speaks appropriately for age. - Family history: Not pertinent. - : The pt / caregiver states he / she is not on anticoagulants. Home medication list is obtained from the patient. - Exposure Risk Screening:: None identified. [employer]: 03/24 06:51 LMP 03/13/2016 cz Vital Signs: 06:51 BP 122 / 77; Pulse 74; Resp 16; Temp 96.3(T); Pulse Ox 100% on R/A; Weight 69.85 kg / cz 153.99 lbs; Height 5 ft. 4 in. (162.56 cm); 10:33 BP 105 / 56; Pulse 71; Resp 17; Temp 96.1(T); Pulse Ox 99% on R/A; lr2 11:03 Pain 0/10; jo3 06:51 Body Mass Index 26.43 (69.85 kg, 162.56 cm) cz MDM: 07:03 NS 0.9% 1000 ml IV at 250 mL/hr continuous ordered. sd1 07:03 Set up pelvic ordered. sd1 07:04 UA Ordered. EDMS 07:04 Urine Culture Ordered. EDMS 07:04 HCG,Serum Qualitative Ordered. EDMS 07:04 CBC with Diff Ordered. EDMS 07:04 GC & Chlamydia Amplification Ordered. EDMS 07:04 Wet Prep Ordered. EDMS 07:09 Financial registration complete. pm4 07:20 [facility] Payment Agreement was scanned into [employer] and attached to record. pm4 07:39 CBC with Diff Reviewed. sd1 07:50 UA Reviewed. sd1 08:05 HCG,Serum Qualitative Reviewed. sd1 08:06 ketorolac 30 mg IVP once ordered. sd1 08:41 -US Pelvic Non-Ob Complete Ordered. EDMS 08:42 DUPLEX SCAN LIMITED (DOPPLER)+US Ordered. EDMS 08:43 Wet Prep Reviewed. sd1 10:12 Transvaginal NON- US Ordered. EDMS 12:51 T-Sheet-- Draft Copy was scanned into [employer] Internet and attached to record. klr Administered Medications: 07:30 Drug: NS 0.9% 1000 ml [sodium chloride 0.9 % intravenous solution] Route: IV; Rate: 250 ml6 mL/hr; Site: left antecubital; 11:03 Follow up: IV Status: Completed infusion jo3 08:18 Drug: ketorolac 30 mg [ketorolac 30 mg/mL (1 mL) injection solution (1 mL)] Route: IVP; ml6 Site: left antecubital; 11:03 Follow up: Pain 0/10 Adult jo3 Addendum: 03/26/2016 17:41 Radiology Callback: A certified letter will be sent to the patient / guardian. to pt re ml formal read of pelvic us for fu . no pcp or master planner documented. needs fu. see report. mlg. Signatures: Dispatcher [employer] EDMS Sruthi Ozuna MD MD sd1 Vladimir Dior MD MD ml Zecher, Calvin, RN RN cz Helmerci, Jennifer, RN RN jo3 Ivonne Garcia Paul, Reg Reg pm4 Denny Gallardo RN ml6 The chart was reviewed and I authenticate all verbal orders and agree with the evaluation and treatment provided.Attachments: 02/05 07:20 [facility] Payment Agreement pm4 12:51 T-Sheet-- Draft Copy klr Chart Complete MTDD
== END 2016-03-24 11:03 | disposition home or self-care (01) ==
LOC: M ED 06:37
DX: N76.0 Acute vaginitis (principal); R09.81 Nasal congestion; R05 Cough; N28.9 Disorder of kidney and ureter, unspecified; Z87.442 Personal history of urinary calculi; Z88.0 Allergy status to penicillin; Z88.5 Allergy status to narcotic agent
CPT/HCPCS: 36415; 76830; 76856; 81001; 84703; 85025; 87086; 87210; 87491; 87591; 93976; 96361; 96374; 99284; J1885